=== PATIENT | male | born 1940 | race Caucasian/White ===

== ENCOUNTER 2022-01-14 05:56 | Day surgery (SDC) | payer OTHER, SELFPAY ==
[2022-01-07 11:10] VITALS: BMI 22.0
--- NOTE | 2022-01-11 08:31 | HO.ANESPROP2 ---
Documented by User: Jammie Griffith NP 01/11/22 08:33 HPI - Anesthesia Eval Consult details Narrative: 81yo M for Left Hernia Repair of Recurrent Inguinal PMFSH Active Problems Active Problems: All Active Problems (Updated 01/07/22 @ 11:16 by Yaneth De Jesus RN) Recurrent left inguinal hernia (Acute) Past Medical History Medical History (Updated 01/07/22 @ 11:16 by Yaneth De Jesus RN) Anesthesia complication Chronic hypotension COVID-19 vaccine series completed Elevated cholesterol GERD (gastroesophageal reflux disease) Murmur Oxycodone adverse reaction RBBB (right bundle branch block) Small intestinal bacterial overgrowth (SIBO) Family History Family History Sister Breast cancer, Onset Age: 50 Father Prostate cancer Surgical History Surgical History (Updated 01/07/22 @ 12:05 by Yaneth De Jesus RN) History of colonoscopy History of Mohs surgery for squamous cell carcinoma in situ of skin History of repair of right rotator cuff Hx of cardiac catheterization Hx of eye surgery Hx of left inguinal hernia repair Hx of right inguinal hernia repair Social History Social History Are you a primary urgent care physician assistant to a significant other at home: No Do you presently have visiting nurse or other home services: No Alcohol intake: never Patient Tobacco Use Status: Never used Tobacco Use of substances other than those prescribed or required for medical reasons: No Have you been hit, kicked, punched, or otherwise hurt by someone within the past year? If so, by whom?: No Are you DNR?: No Advance Directives Information Provided: Yes (to bring [place] [facility] [place] Advance Directives on File: No Recently lost weight without trying: No Eating poorly because of decreased appetite: No Nutrition Risks: Surgical patient >75years Poor oral hygiene: No Meds Allergies Allergy/AdvReac Type Severity Reaction Status Date / Time oxycodone [OXYCODONE] Allergy Intermediate SEVERE Verified 01/14/22 06:57 nausea/vomiting (can take tylenol w/codeine) Home Medications Medication Instructions Recorded Confirmed Last Taken Type lifitegrast 5 % eye drops in a 1 drp ophthalmic (eye) BID 01/07/22 01/07/22 Unknown History dropperette (Xiidra) simvastatin 20 mg tablet 1 tab PO BEDTIME 01/07/22 01/07/22 Unknown History timolol maleate 0.5 % eye drops 1 drp ophthalmic-Left QAM 01/07/22 01/07/22 Unknown History Exam Exam Date and Time: January 11, 2022 0831 Height,Weight and Vital Signs: Height 6 ft 1 in Weight 75.75 kg Assessment and Plan Assessment Anesthesia Assessment: Chart Reviewed Documented by User: Kenneth Lara MD 01/14/22 07:27 [facility] Past Medical History Medical History (Updated 01/07/22 @ 11:16 by Yaneth De Jesus RN) Anesthesia complication Chronic hypotension COVID-19 vaccine series completed Elevated cholesterol GERD (gastroesophageal reflux disease) Murmur Oxycodone adverse reaction RBBB (right bundle branch block) Small intestinal bacterial overgrowth (SIBO) Family History Family History Sister Breast cancer, Onset Age: 50 Father Prostate cancer Family history of problems with anesthesia: No Surgical History Surgical History (Updated 01/07/22 @ 12:05 by Yaneth De Jesus RN) History of colonoscopy History of Mohs surgery for squamous cell carcinoma in situ of skin History of repair of right rotator cuff Hx of cardiac catheterization Hx of eye surgery Hx of left inguinal hernia repair Hx of right inguinal hernia repair History of Problems with Anesthesia: No Social History Social History Are you a primary urgent care physician assistant to a significant other at home: No Do you presently have visiting nurse or other home services: No Alcohol intake: never Patient Tobacco Use Status: Never used Tobacco Use of substances other than those prescribed or required for medical reasons: No Have you been hit, kicked, punched, or otherwise hurt by someone within the past year? If so, by whom?: No Are you DNR?: No Advance Directives Information Provided: Yes ([place] bring copy [place] [facility] [place] Advance Directives on File: No Recently lost weight without trying: No Eating poorly because of decreased appetite: No Nutrition Risks: Surgical patient >75years Poor oral hygiene: No Meds Allergies Allergy/AdvReac Type Severity Reaction Status Date / Time oxycodone [OXYCODONE] Allergy Intermediate SEVERE Verified 01/14/22 06:57 nausea/vomiting (can take tylenol w/codeine) Home Medications Medication Instructions Recorded Confirmed Last Taken Type lifitegrast 5 % eye drops in a 1 drp ophthalmic (eye) BID 01/07/22 01/07/22 Unknown History dropperette (Xiidra) simvastatin 20 mg tablet 1 tab PO BEDTIME 01/07/22 01/07/22 Unknown History timolol maleate 0.5 % eye drops 1 drp ophthalmic-Left QAM 01/07/22 01/07/22 Unknown History Exam Airway Mallampati Class: II TM Dist: >3cm Neck ROM: Full Assessment and Plan Assessment Anesthesia Assessment: Anesthesia Plan Discussed Final Anesthetic Review Family History of Problems with Anesthesia: No History of Problems with Anesthesia: No NPO: Yes ASA Class: II Final Preanesthetic Review: No Changes in Pt Med Stat, Meds/Allgs Chart Reviewed, Consent Obtained/Reviewed and Anes Risks/Benef Reviewed Patient Risk: Low Procedure Risk: Low Anesthetic Plan Anesthetic Plan: GA Disposition: Standard PACU
[2022-01-14] VITALS (10 sets, daily range): BP systolic 121–149; BP diastolic 72–79; PULSE 45–68; RESP 16; TEMP 35.9–36.3; O2SAT 96–100
--- NOTE | 2022-01-14 | ECG_ITS ---
Test Reason : pre op Blood Pressure : / mmHG Vent. Rate : 050 BPM Atrial Rate : 050 BPM P-R Int : 174 ms QRS Dur : 108 ms QT Int : 460 ms P-R-T Axes : 064 027 033 degrees QTc Int : 419 ms Sinus bradycardia with sinus arrhythmia RSR' or QR pattern in V1 suggests right ventricular conduction delay Abnormal ECG When compared with ECG of 02-JUN-2014 14:11, No significant change was found Referred By: Jammie Griffith Electronically Signed By:ALBERTO BARNETT MD
[2022-01-14] MEDS: Lactated Ringers 1,000 ML 100 ML IVCONT (06:58)
--- NOTE | 2022-01-14 08:25 | MHC.SHP ---
Pre-Procedural Eval Section A Date of Service: 01/14/22 The patient is an INPATIENT: No Changes since office visit: Yes Patient answered all questions; No Cold of Flu in the past 2 weeks, No New Medical Problems and No Changes in Medication The History & Physical has been completed within 30 days and I have reviewed it.: No Section B Chief Complaint: Unilateral inguinal hernia, Details of Present Illness: Patient reports increased pain in the left groin with a palpable lump since his last visit. Relevant Family History (Specify if Yes): No Present Medications: see Short Stay Collaborative assessment Medical History: No relevant PMH History of Previous Operations: Relevant previous surgery/procedure and date(s) ( Previous inguinal hernia repair) Allergies: Allergies Allergy/AdvReac Type Severity Reaction Status Date / Time oxycodone [OXYCODONE] Allergy Intermediate SEVERE Verified 01/14/22 06:57 nausea/vomiting (can take tylenol w/codeine) Review of Systems Sugical H&P ROS: Negative: Constitution, Cardiovascular, Respiratory, Neurological, Psychiatric, Hem-Onc, Allergic/Immunologic, Gastrointestinal, Genitourinary, Musculoskeletal, Integumentary, Endocrine and Eyes/Ears/Nose/Throat Exam Surgical H&P Exam: Normal: HEENT, Normal: Heart, Normal: Lungs, Normal: Extremities, Normal: Abdomen, Normal: Skin and Normal: Neurological Plan Diagnosis/Plan: Unchanged I have reviewed the history and physical and performed a pertinent physical examination on my patient. No changes have occurred unless specified.
--- NOTE | 2022-01-14 08:32 | W.PM.OPN ---
Operative Note Operative Note Date of Service: 01/14/22 Narrative: Preoperative diagnosis: recurrent left inguinal hernia Postoperative diagnosis: same Procedure: repair of recurrent left inguinal hernia with mesh Surgeon: Lenny Nathan MD Weatherization Director: Lucia Urbina PA-C Anesthesia: general LMA Indications for procedure: 81-year-old male patient with a previous history of left inguinal hernia repair in 2014 now presenting with a new painful lump in the left groin. On examination the lump increases in size with lifting and Valsalva maneuvers the reduces with light pressure. Operative findings: Moderate size direct left inguinal hernia. Specimen: Lipoma of the cord Estimated blood loss: 2 mL Complications: none Procedure details: patient was brought to the OR and placed in a supine position. After administering general anesthesia the patient's abdomen was prepped with ChloraPrep and draped in a sterile fashion. A surgical time-out was called the consent confirmed. Patient received preoperative antibiotics and Venodyne boots were in place. Local anesthesia consisting of 0.5% Sensorcaine was infiltrated over the left inguinal ligament. Incision was then made with a scalpel carried out through subcutaneous tissue, past Anya's fashion up to the external oblique aponeurosis. Additional local anesthesia was then infiltrated Below the fascia. The external oblique aponeurosis was then incised with scalpel wide with the Metzenbaum scissors. Spermatic cord was then dissected free from the surrounding inguinal canal. This was then retracted using a [place] drain. Weakness was noted at the floor of the inguinal canal. Fibers of the cremesteric muscle were and a small lipoma of the cord removed. This was excised with electrocautery and ligated with a 3-0 Polysorb suture. A preperitoneal space was then created medial to the inferior epigastric vessels. This was widened with a open Ray-Nan sponge. A medium PHS mesh was then obtained. The circular underlay was deployed within the preperitoneal space. The overlay was then secured to the pubic tubercle, conjoined tendon, and shelving edge of the inguinal ligament using a 0 Polysorb suture. A slit was made in the mesh in the mesh wrapped around the spermatic cord at the internal ring. This then secured to the shelving edge of inguinal ligament using 0 Polysorb suture. Wounds were then irrigated with saline solution suctioned dry. External oblique aponeurosis was then closed using a running 2 0 Polysorb suture. 6 mL of Zenrelef was then infiltrated over the mesh. Anya's fascia and dermis were then reapproximated using interrupted 3-0 Polysorb sutures. Skin was closed using a running subcuticular 4-0 Polysorb suture. Steri-Strips, 2 x 2 gauze and Tegaderm were then applied. The patient tolerated the procedure well. Sponge, instrument, and needle counts reported as correct. Patient was transferred to PACU in stable condition.
== END 2022-01-14 10:59 | disposition home or self-care (01) ==
PROVIDERS: PCP Internal Medicine; Visit Provider Surgery
PROC: (CPT 49520; principal; 2022-01-14 07:30)
DX: K40.91 Unilateral inguinal hernia, without obstruction or gangrene, recurrent (principal); D17.6 Benign lipomatous neoplasm of spermatic cord; K21.9 Gastro-esophageal reflux disease without esophagitis; E78.2 Mixed hyperlipidemia; I25.709 Atherosclerosis of coronary artery bypass graft(s), unspecified, with unspecified angina pectoris; Z79.899 Other long term (current) drug therapy; Z88.8 Allergy status to other drugs, medicaments and biological substances; Z98.890 Other specified postprocedural states
CPT/HCPCS: 49520; 88304; 93005; C1781; C9088; J0690; J2795; J3010

== ENCOUNTER → 2022-02-22 09:57 | Outpatient (BNVA) | payer OTHER, SELFPAY | PROVIDERS: PCP Internal Medicine; Visit Provider Surgery | DX: K40.91 Unilateral inguinal hernia, without obstruction or gangrene, recurrent (principal) ==